=== PATIENT | female | born 1990 | race African-American/Black ===

== ENCOUNTER 2016-11-19 10:11 | Outpatient (CLI) | payer OTHER ==
[~2016-11-19] VITALS: Ht 165.1 cm; Wt 92.0 kg
[2016-11-19 10:37] VITALS: BP 132/89
[2016-11-19] MEDS ORDERED: PRENATAL TABLE1 EAC3 PO (10:37)
[2016-11-19 11:29] VITALS: BP 131/79
== END 2016-11-19 14:45 | disposition home or self-care (01) ==
LOC: LDRP-OP 10:11 → 2WEST 10:12 → LDRP-OP 16:30
PROC: 10S0XZZ Reposition Products of Conception, External Approach (ICD-10-PCS; principal; 2016-11-19)
DX: O32.1XX0 Maternal care for breech presentation, not applicable or unspecified (principal); Z3A.38 38 weeks gestation of pregnancy
CPT/HCPCS: 59025; G0378; J3105

== ENCOUNTER 2016-11-26 09:08 | Inpatient (IN) | payer OTHER ==
[2016-11-26] VITALS (7 sets, daily range): BP systolic 125–145; BP diastolic 77–94
[~2016-11-26] VITALS: Ht 165.1 cm; Wt 92.7 kg
[~2016-11-26 09:08] MED LIST: PRENATAL TABLE1 EAC3 PO
[2016-11-26 10:23] LABS: EOSINOPHIL (%) 0.5 % (0-5); EOSINOPHIL COUNT 0.1 K/uL (0-0.3); HEMATOCRIT 37.3 % (36.0-46.0); IMMATURE GRANULOCYTE (%) 0.7 % (0.0-0.7); IMMATURE GRANULOCYTE COUNT 0.1 K/uL; INSTRUMENT ABS NEUTROPHIL CT 8.5 K/uL; LYMPHOCYTE COUNT 1.3 K/uL (1.0-2.8); MCH 27.5 PG (29.0-34.0); MCHC 32.7 G/DL (30.0-36.0); MEAN PLAT.VOLUME 11.2 uM^3 (9.5-12.4); MONOCYTE (%) 5.6 % (3-12); MONOCYTE COUNT 0.6 K/uL (0-0.8); NEUTROPHIL COUNT 8.5 K/uL (1.8-6.4); PLATELET COUNT 207 K/uL (156-360); RBC DIS.WIDTH-SD 39.3 % (39-53); RED BLOOD COUNT 4.44 M/uL (3.80-5.20); WHITE BLOOD COUNT 10.5 K/uL (4.1-10.2)
[2016-11-26] MEDS ORDERED: ENDOCET 5-3251 EACH PO (14:00)
[2016-11-26] MEDS ORDERED: IBUPROFEN800 MG PO (14:00)
[2016-11-27] VITALS (7 sets, daily range): BP systolic 112–133; BP diastolic 61–77
[2016-11-27 07:50] LABS: EOSINOPHIL (%) 0.1 % (0-5); HEMATOCRIT 31.1 % (36.0-46.0); IMMATURE GRANULOCYTE (%) 0.7 % (0.0-0.7); IMMATURE GRANULOCYTE COUNT 0.1 K/uL; INSTRUMENT ABS NEUTROPHIL CT 13.1 K/uL; LYMPHOCYTE COUNT 1.2 K/uL (1.0-2.8); MCHC 34.1 G/DL (30.0-36.0); MEAN PLAT.VOLUME 11.6 uM^3 (9.5-12.4); MONOCYTE (%) 5.5 % (3-12); MONOCYTE COUNT 0.8 K/uL (0-0.8); NEUTROPHIL (%) 85.7 % (45-76); NEUTROPHIL COUNT 13.1 K/uL (1.8-6.4); PLATELET COUNT 188 K/uL (156-360); RBC DIS.WIDTH-CV 13.2 % (11.8-14.6); RBC DIS.WIDTH-SD 40.8 % (39-53); RED BLOOD COUNT 3.66 M/uL (3.80-5.20); WHITE BLOOD COUNT 15.2 K/uL (4.1-10.2)
[2016-11-28 04:00] VITALS: BP 107/61
[2016-11-28 07:26] VITALS: BP 114/75
[2016-11-28 11:32] VITALS: BP 125/71
[2016-11-28 15:37] VITALS: BP 128/70
[2016-11-29 07:41] VITALS: BP 113/71
== END 2016-11-29 17:00 | disposition home or self-care (01) | DRG 766 ==
LOC: 2SOUTH 09:08 → 2WEST 09:10 → SDC 09:24 → EDSTATUS 09:25 → 2SOUTH 09:25 → 2WEST 11-29 17:00
PROVIDERS: Obstetrics & Gynecology
PROC: 10D00Z1 Extraction of Products of Conception, Low, Open Approach (ICD-10-PCS; principal; 2016-11-26)
DX: O64.1XX0 Obstructed labor due to breech presentation, not applicable or unspecified (principal); Z37.0 Single live birth; Z3A.39 39 weeks gestation of pregnancy
CPT/HCPCS: 85025; 86850; 86900; 86901; J0690; J1100; J2274; J2405; J3010; J7120